=== PATIENT | female | born 1945 | race Caucasian/White ===

== ENCOUNTER 2021-06-07 16:38 | Inpatient (IN) | payer OTHER ==
[2021-06-07 18:53] LABS: HEMATOCRIT 24.4 % (32.4-45.2); HEMOGLOBIN 7.7 GM/dL (10.7-15.3); MCH 28.5 pg (25.7-33.7); MCHC 31.6 g/dl (32.0-36.0); MEAN PLT VOLUME 7.7 fl (7.5-11.1); PLATELET COUNT 250 10^3/uL (134-434); RBC 2.71 M/mm3 (3.60-5.2); RDW 21.1 % (11.6-15.6); RETICULOCYTES 3.32 % (0.5-1.5); WHITE BLOOD COUNT 9.9 K/mm3 (4.0-10.0)
[2021-06-07 18:57] LABS: CHLORIDE 107 mmol/L (98-107); SODIUM 138 mmol/L (136-145)
[2021-06-07 18:59] LABS: CALCIUM 8.7 mg/dL (8.5-10.1)
[2021-06-07 19:00] LABS: ANION GAP 10 MMOL/L (8-16); BLOOD UREA NITROGEN 26.8 mg/dL (7-18); CO2 21 mmol/L (21-32); GLUCOSE,RANDOM 114 mg/dL (74-106)
[2021-06-07 19:01] LABS: INR 0.97 (0.83-1.09)
[2021-06-07 19:02] LABS: MAGNESIUM 2.1 mg/dL (1.8-2.4)
[2021-06-07 19:04] LABS: ACTIVATED PTT 27.1 SECONDS (25.2-36.5); SGPT/ALT 14 U/L (13-61)
[2021-06-07 19:05] LABS: BILIRUBIN,TOTAL 0.3 mg/dL (0.2-1); CREATININE 1.6 mg/dL (0.55-1.3); IRON SERUM 52 ug/dL (50-175); SGOT/AST 13 U/L (15-37); TOT PROT 6.7 g/dl (6.4-8.2); TOTAL IRON BINDING CAPACITY 244 ug/dL (250-450)
[2021-06-07 19:06] LABS: ALK PHOS 100 U/L (45-117)
[2021-06-07 19:09] LABS: LDH 216 U/L (84-246)
[2021-06-07 20:01] LABS: ANISOCYTOSIS 3+; MACROCYTOSIS 0; OVALOCYTE 1+; PLATELET ESTIMATE NORMAL
[2021-06-08] MEDS ORDERED: POLYETHYLENE GLYCOL 3350 255 GM BTL PO PRN (04:22)
[2021-06-08] MEDS: LEVOTHYROXINE NA 100 MCG TABLET (FP) PO SCH (06:22)
[2021-06-08] MEDS ORDERED: lamoTRIgine 100 MG TABLET PO SCH (07:00)
[2021-06-08] MEDS ORDERED: PT OWN MED DRAWER 7, Y5N ONE (09:14)
[2021-06-08] MEDS: traMADol HCL 50 MG TABLET PO PRN (09:15)
[2021-06-08] MEDS: MIRTAZAPINE 15 MG TABLET (FP) PO SCH (09:16)
[2021-06-08] MEDS: CLOPIDOGREL BISULFATE 75 MG TABLET (FP) PO SCH (09:16)
[2021-06-08 09:27] LABS: HEMATOCRIT 25.3 % (32.4-45.2); HEMOGLOBIN 8.4 GM/dL (10.7-15.3); MCH 26.5 pg (25.7-33.7); MCHC 33.2 g/dl (32.0-36.0); MEAN CELL VOLUME 79.7 fl (80-96); MEAN PLT VOLUME 7.4 fl (7.5-11.1); PLATELET COUNT 221 10^3/uL (134-434); RBC 3.18 M/mm3 (3.60-5.2); RDW 28.2 % (11.6-15.6); WHITE BLOOD COUNT 7.5 K/mm3 (4.0-10.0)
[2021-06-08 09:52] LABS: CALCIUM 8.3 mg/dL (8.5-10.1)
[2021-06-08 09:53] LABS: BLOOD UREA NITROGEN 22.3 mg/dL (7-18)
[2021-06-08 09:55] LABS: CREATININE 1.4 mg/dL (0.55-1.3)
[2021-06-08] MEDS ORDERED: METOPROLOL TARTRATE 25 MG TABLET (FP) PO SCH (10:00)
[2021-06-08 10:17] LABS: ANISOCYTOSIS 2+; MACROCYTOSIS 2+; OVALOCYTE 1+; PLATELET ESTIMATE NORMAL
[2021-06-08] MEDS: PANTOPRAZOLE 40 MG TABLET PO SCH (10:33)
[2021-06-08 13:00] VITALS: BMI 31.0
[2021-06-08] MEDS: POLYETHYLENE GLYCOL (HEALTHYLAX) 3350 17 GM PACKET PO SCH ×3 (14:32→21:28)
[2021-06-08 14:51] LABS: EPI CELLS 22 /uL (0-25.1); HYALINE CASTS 2 /uL (0-3.1); URINE APPEARANCE CLEAR; URINE BACTERIA 4930 /uL (0-1359); URINE BILIRUBIN NEGATIVE (NEGATIVE); URINE COLOR YELLOW; URINE GLUCOSE (UA) NEGATIVE (NEGATIVE); URINE KETONE NEGATIVE (NEGATIVE); URINE LEUK ESTERASE 3+ (NEGATIVE); URINE NITRITE POSITIVE (NEGATIVE); URINE PROTEIN TRACE (NEGATIVE); URINE RBC 6 /uL (0-23.9); URINE UROBILINOGEN 0.2 mg/dL (0.2-1.0); URINE WBC 71 /uL (0-25.8)
[2021-06-08] MEDS: traZODone HCL 50 MG TABLET (FP) PO SCH (21:25)
[2021-06-08] MEDS: DOCUSATE SODIUM 100 MG CAPSULE (FP) PO SCH (21:25)
[2021-06-09] MEDS ORDERED: PT OWN MED DRAWER 7, Y5N ONE ×2 (06:15→09:28)
[2021-06-09] MEDS: LEVOTHYROXINE NA 100 MCG TABLET (FP) PO SCH (06:32)
[2021-06-09] MEDS: LAMOTRIGINE 100 MG, LAMOTRIGINE 50 MG PO SCH (06:32)
[2021-06-09] MEDS: POLYETHYLENE GLYCOL (HEALTHYLAX) 3350 17 GM PACKET PO SCH ×3 (06:33→21:09)
[2021-06-09] MEDS: MIRTAZAPINE 15 MG TABLET (FP) PO SCH (09:30)
[2021-06-09] MEDS: PANTOPRAZOLE 40 MG TABLET PO SCH (09:30)
[2021-06-09] MEDS: traMADol HCL 50 MG TABLET PO PRN (09:30)
[2021-06-09] MEDS: CLOPIDOGREL BISULFATE 75 MG TABLET (FP) PO SCH (09:30)
[2021-06-09 09:45] LABS: BASO % 0.6 % (0-2.0); HEMATOCRIT 27.1 % (32.4-45.2); HEMOGLOBIN 8.7 GM/dL (10.7-15.3); LYMPH % 44.8 % (8-40); MCHC 32.2 g/dl (32.0-36.0); MEAN CELL VOLUME 80.9 fl (80-96); MEAN PLT VOLUME 7.5 fl (7.5-11.1); MONO % 9.9 % (3.8-10.2); NEUT % 40.7 % (42.8-82.8); PLATELET COUNT 216 10^3/uL (134-434); RBC 3.35 M/mm3 (3.60-5.2); RDW 27.9 % (11.6-15.6); WHITE BLOOD COUNT 7.2 K/mm3 (4.0-10.0)
[2021-06-09 10:07] LABS: CALCIUM 8.4 mg/dL (8.5-10.1)
[2021-06-09 10:08] LABS: BLOOD UREA NITROGEN 18.2 mg/dL (7-18)
[2021-06-09 10:10] LABS: CREATININE 1.4 mg/dL (0.55-1.3)
[2021-06-09 17:11] LABS: EPI CELLS 14 /uL (0-25.1); HYALINE CASTS 4 /uL (0-3.1); URINE APPEARANCE TURBID; URINE BACTERIA 2367 /uL (0-1359); URINE BILIRUBIN NEGATIVE (NEGATIVE); URINE COLOR YELLOW; URINE GLUCOSE (UA) NEGATIVE (NEGATIVE); URINE KETONE NEGATIVE (NEGATIVE); URINE LEUK ESTERASE 3+ (NEGATIVE); URINE NITRITE POSITIVE (NEGATIVE); URINE PROTEIN 2+ (NEGATIVE); URINE UROBILINOGEN 0.2 mg/dL (0.2-1.0); URINE WBC 9075 /uL (0-25.8)
[2021-06-09 18:15] LABS: URINE RBC 139.4 /uL (0-23.9); YEAST NONE SEEN (NEGATIVE)
[2021-06-09] MEDS: DOCUSATE SODIUM 100 MG CAPSULE (FP) PO SCH (21:08)
[2021-06-09] MEDS: traZODone HCL 50 MG TABLET (FP) PO SCH (21:09)
[2021-06-10] MEDS ORDERED: PT OWN MED DRAWER 7, Y5N ONE (06:06)
[2021-06-10] MEDS: POLYETHYLENE GLYCOL (HEALTHYLAX) 3350 17 GM PACKET PO SCH ×3 (06:24→21:40)
[2021-06-10] MEDS: LEVOTHYROXINE NA 100 MCG TABLET (FP) PO SCH (06:24)
[2021-06-10] MEDS: LAMOTRIGINE 100 MG, LAMOTRIGINE 50 MG PO SCH (06:24)
[2021-06-10 08:54] LABS: BASO % 0.5 % (0-2.0); EOS % 2.6 % (0-4.5); HEMATOCRIT 26.7 % (32.4-45.2); HEMOGLOBIN 8.7 GM/dL (10.7-15.3); MCH 26.8 pg (25.7-33.7); MCHC 32.6 g/dl (32.0-36.0); MEAN PLT VOLUME 7.4 fl (7.5-11.1); MONO % 9.6 % (3.8-10.2); NEUT % 43.3 % (42.8-82.8); PLATELET COUNT 211 10^3/uL (134-434); RBC 3.25 M/mm3 (3.60-5.2); RDW 27.9 % (11.6-15.6); WHITE BLOOD COUNT 8.7 K/mm3 (4.0-10.0)
[2021-06-10 09:15] LABS: BLOOD UREA NITROGEN 20.4 mg/dL (7-18); CALCIUM 8.4 mg/dL (8.5-10.1)
[2021-06-10 09:18] LABS: CREATININE 1.5 mg/dL (0.55-1.3)
[2021-06-10] MEDS: MIRTAZAPINE 15 MG TABLET (FP) PO SCH (09:21)
[2021-06-10] MEDS: CLOPIDOGREL BISULFATE 75 MG TABLET (FP) PO SCH (09:21)
[2021-06-10] MEDS: PANTOPRAZOLE 40 MG TABLET PO SCH (09:21)
[2021-06-10] MEDS: traZODone HCL 50 MG TABLET (FP) PO SCH ×2 (21:39→21:40)
[2021-06-10] MEDS: DOCUSATE SODIUM 100 MG CAPSULE (FP) PO SCH (21:39)
[2021-06-11] MEDS ORDERED: PT OWN MED DRAWER 7, Y5N ONE ×3 (06:03→22:48)
[2021-06-11] MEDS: POLYETHYLENE GLYCOL (HEALTHYLAX) 3350 17 GM PACKET PO SCH ×4 (06:15→21:16)
[2021-06-11] MEDS: LEVOTHYROXINE NA 100 MCG TABLET (FP) PO SCH (06:15)
[2021-06-11] MEDS: LAMOTRIGINE 100 MG, LAMOTRIGINE 50 MG PO SCH (06:15)
[2021-06-11 10:17] LABS: HEMOGLOBIN 9.2 GM/dL (10.7-15.3); MCHC 31.8 g/dl (32.0-36.0); MEAN CELL VOLUME 81.7 fl (80-96); MEAN PLT VOLUME 7.6 fl (7.5-11.1); PLATELET COUNT 218 10^3/uL (134-434); RBC 3.55 M/mm3 (3.60-5.2); RDW 27.4 % (11.6-15.6); WHITE BLOOD COUNT 8.3 K/mm3 (4.0-10.0)
[2021-06-11] MEDS: PANTOPRAZOLE 40 MG TABLET PO SCH (10:34)
[2021-06-11] MEDS: CLOPIDOGREL BISULFATE 75 MG TABLET (FP) PO SCH (10:35)
[2021-06-11] MEDS: MIRTAZAPINE 15 MG TABLET (FP) PO SCH (10:35)
[2021-06-11 10:57] LABS: ALBUMIN 2.8 g/dl (3.4-5.0); BLOOD UREA NITROGEN 21.7 mg/dL (7-18); CALCIUM 8.8 mg/dL (8.5-10.1)
[2021-06-11 11:00] LABS: CREATININE 1.5 mg/dL (0.55-1.3)
[2021-06-11 11:02] LABS: BILIRUBIN,TOTAL 0.5 mg/dL (0.2-1); TOT PROT 6.2 g/dl (6.4-8.2)
[2021-06-11] MEDS: DOCUSATE SODIUM 100 MG CAPSULE (FP) PO SCH (21:13)
[2021-06-11] MEDS: traZODone HCL 50 MG TABLET (FP) PO SCH (21:13)
[2021-06-12] MEDS: POLYETHYLENE GLYCOL (HEALTHYLAX) 3350 17 GM PACKET PO SCH (05:53)
[2021-06-12] MEDS ORDERED: PT OWN MED DRAWER 7, Y5N ONE ×2 (05:56→10:45)
[2021-06-12] MEDS: LAMOTRIGINE 100 MG, LAMOTRIGINE 50 MG PO SCH (06:00)
[2021-06-12] MEDS: LEVOTHYROXINE NA 100 MCG TABLET (FP) PO SCH (06:00)
[2021-06-12] MEDS: MIRTAZAPINE 15 MG TABLET (FP) PO SCH (10:46)
[2021-06-12] MEDS: CLOPIDOGREL BISULFATE 75 MG TABLET (FP) PO SCH (10:46)
[2021-06-12] MEDS: PANTOPRAZOLE 40 MG TABLET PO SCH (10:46)
[2021-06-12 11:58] VITALS: BP 125/66; PULSE 79; TEMP 97.8
== END 2021-06-12 13:00 | DRG 812 ==
LOC: JER 16:38 → JERBED 20:02 → J6S 23:52
PROVIDERS: ADMIT Internal Medicine; ATTEND Family Medicine
PROC: 30233N1 Transfusion of Nonautologous Red Blood Cells into Peripheral Vein, Percutaneous Approach (ICD-10-PCS; principal; 2021-06-08)
DX: D50.9 Iron deficiency anemia, unspecified (principal); N17.9 Acute kidney failure, unspecified; C85.90 Non-Hodgkin lymphoma, unspecified, unspecified site; C16.9 Malignant neoplasm of stomach, unspecified; I10 Essential (primary) hypertension; K21.9 Gastro-esophageal reflux disease without esophagitis; I25.10 Atherosclerotic heart disease of native coronary artery without angina pectoris; Z85.028 Personal history of other malignant neoplasm of stomach; Z85.048 Personal history of other malignant neoplasm of rectum, rectosigmoid junction, and anus; M48.00 Spinal stenosis, site unspecified; E78.5 Hyperlipidemia, unspecified; E03.9 Hypothyroidism, unspecified
CPT/HCPCS: 36415; 36430; 71045-TC-FY; 71250-TC; 74176-TC; 76775-TC; 80048; 80053; 81003; 82272; 82550; 82570; 82607; 82728; 82746; 83010; 83540; 83550; 83615; 83735; 84100; 84156; 84300; 84466; 84484; 84540; 85025; 85027; 85045; 85610; 85730; 86850; 86900; 86901; 86922; 93005; 93010; 99285-25; C9803; P9058; U0003; U0005

== ENCOUNTER 2021-07-05 14:22 | Inpatient (IN) | payer OTHER ==
[2021-07-05 15:56] LABS: BASO % 0.4 % (0-2.0); EOS % 2.8 % (0-4.5); HEMATOCRIT 25.5 % (32.4-45.2); HEMOGLOBIN 8.3 GM/dL (10.7-15.3); LYMPH % 39.8 % (8-40); MCH 28.6 pg (25.7-33.7); MCHC 32.5 g/dl (32.0-36.0); MEAN CELL VOLUME 88.1 fl (80-96); MEAN PLT VOLUME 7.6 fl (7.5-11.1); MONO % 6.6 % (3.8-10.2); NEUT % 50.4 % (42.8-82.8); PLATELET COUNT 241 10^3/uL (134-434); RBC 2.89 M/mm3 (3.60-5.2); RDW 26.7 % (11.6-15.6); WHITE BLOOD COUNT 13.3 K/mm3 (4.0-10.0)
[2021-07-05 16:15] LABS: CHLORIDE 115 mmol/L (98-107); SODIUM 141 mmol/L (136-145)
[2021-07-05 16:17] LABS: ALBUMIN 2.6 g/dl (3.4-5.0); ANION GAP 8 MMOL/L (8-16); BLOOD UREA NITROGEN 48.2 mg/dL (7-18); CALCIUM 7.9 mg/dL (8.5-10.1); CO2 18 mmol/L (21-32); GLUCOSE,RANDOM 105 mg/dL (74-106); MAGNESIUM 2.5 mg/dL (1.8-2.4)
[2021-07-05 16:19] LABS: CREATININE 2.2 mg/dL (0.55-1.3); SGOT/AST 9 U/L (15-37); SGPT/ALT 13 U/L (13-61)
[2021-07-05 16:21] LABS: BILIRUBIN,TOTAL 0.3 mg/dL (0.2-1); TOT PROT 6.3 g/dl (6.4-8.2)
[2021-07-05 16:23] LABS: ALK PHOS 80 U/L (45-117)
[2021-07-05] MEDS ORDERED: INSULIN REGULAR HUMAN 100 UNITS/ML *VIAL IVPUSH ONE (16:24)
[2021-07-05] MEDS ORDERED: CALCIUM GLUCONATE 10% - 1,000 MG/10 ML VIAL IVPUSH ONE ×2 (16:24→19:08)
[2021-07-05] MEDS ORDERED: DEXTROSE 50%-WATER - 25 GM/50 ML VIAL IVPUSH ONE (16:25)
[2021-07-05] MEDS ORDERED: ALBUTEROL SO4 0.083% IH SOL 2.5 MG/3 ML VIAL.NEB. NEB ONE ×2 (16:30→17:05)
[2021-07-05] MEDS ORDERED: SODIUM CHLORIDE 0.9% 500 ML INFUS.BAG IV ONE (16:32)
[2021-07-05] MEDS ORDERED: SODIUM CHLORIDE 500 ML IV STA (16:50)
[2021-07-05] MEDS ORDERED: DEXTROSE 50%-WATER 25 GM/50 ML DISP.SYRIN ONE (17:05)
[2021-07-05] MEDS ORDERED: ATROPINE SULFATE 1 MG/10 ML DISP.SYRIN ONE (17:05)
[2021-07-05] MEDS ORDERED: ATROPINE SO4 0.4 MG/1 ML VIAL IVPUSH ONE (17:05)
[2021-07-05] MEDS ORDERED: CALCIUM GLUCONATE 10% - 1,000 MG/10 ML VIAL ONE ×2 (17:05→19:33)
[2021-07-05 18:38] LABS: PHOSPHOROUS 4.4 mg/dL (2.5-4.9); URIC ACID 5.3 mg/dL (2.6-7.2)
[2021-07-05 18:41] LABS: CALCIUM 8.3 mg/dL (8.5-10.1)
[2021-07-05 18:42] LABS: BLOOD UREA NITROGEN 46.2 mg/dL (7-18)
[2021-07-05 18:43] LABS: LDH 215 U/L (84-246)
[2021-07-05 18:44] LABS: CREATININE 2.1 mg/dL (0.55-1.3)
[2021-07-05] MEDS ORDERED: SODIUM ZIRCONIUM CYCLOSILICATE (LOKELMA) 5 GM PACKET ONE (18:45)
[2021-07-05] MEDS: SODIUM ZIRCONIUM CYCLOSILICATE (LOKELMA) 5 GM PACKET PO SCH (18:48)
[2021-07-06] MEDS ORDERED: CALCIUM GLUCONATE 10% - 1,000 MG/10 ML VIAL IVPUSH ONE (00:22)
[2021-07-06] MEDS ORDERED: CALCIUM GLUCONATE 10% - 1,000 MG/10 ML VIAL ONE (00:23)
[2021-07-06 03:10] LABS: ALBUMIN 2.3 g/dl (3.4-5.0); BLOOD UREA NITROGEN 41.4 mg/dL (7-18); CALCIUM 8.2 mg/dL (8.5-10.1); MAGNESIUM 2.2 mg/dL (1.8-2.4)
[2021-07-06 03:14] LABS: CREATININE 1.9 mg/dL (0.55-1.3)
[2021-07-06 03:15] LABS: BILIRUBIN,TOTAL 0.2 mg/dL (0.2-1); TOT PROT 5.6 g/dl (6.4-8.2)
[2021-07-06] MEDS ORDERED: LEVOTHYROXINE NA 100 MCG TABLET (FP) PO SCH (07:00)
[2021-07-06] MEDS: CLOPIDOGREL BISULFATE 75 MG TABLET (FP) PO SCH (09:28)
[2021-07-06] MEDS: PANTOPRAZOLE 40 MG TABLET PO SCH (09:28)
[2021-07-06] MEDS: SODIUM ZIRCONIUM CYCLOSILICATE (LOKELMA) 5 GM PACKET PO SCH (09:28)
[2021-07-06] MEDS ORDERED: SODIUM CHLORIDE 1,000 ML IV SCH (12:45)
[2021-07-06 13:47] VITALS: BMI 33.0
[2021-07-06] MEDS: SODIUM BICARBONATE 650 MG TABLET PO SCH (15:32)
[2021-07-06] MEDS ORDERED: LIDOCAINE HCL 2% JELLY (5 ML/TUBE) TP PRN (20:57)
[2021-07-06] MEDS: DOCUSATE SODIUM 100 MG CAPSULE (FP) PO SCH (22:36)
[2021-07-06] MEDS: MIRTAZAPINE 15 MG TABLET (FP) PO SCH (22:36)
[2021-07-07] MEDS: LEVOTHYROXINE NA 125 MCG TABLET (FP) PO SCH (06:29)
[2021-07-07 07:57] LABS: HEMATOCRIT 22.6 % (32.4-45.2); HEMOGLOBIN 7.3 GM/dL (10.7-15.3); MCH 28.7 pg (25.7-33.7); MCHC 32.6 g/dl (32.0-36.0); MEAN CELL VOLUME 88.1 fl (80-96); MEAN PLT VOLUME 7.2 fl (7.5-11.1); PLATELET COUNT 204 10^3/uL (134-434); RBC 2.56 M/mm3 (3.60-5.2); RDW 26.1 % (11.6-15.6); WHITE BLOOD COUNT 7.3 K/mm3 (4.0-10.0)
[2021-07-07 08:15] LABS: BLOOD UREA NITROGEN 35.7 mg/dL (7-18); CALCIUM 8.2 mg/dL (8.5-10.1)
[2021-07-07 09:14] LABS: ANISOCYTOSIS 3+; MACROCYTOSIS 1+; PLATELET ESTIMATE NORMAL; ROULEAU 1+
[2021-07-07 09:15] LABS: ALBUMIN 2.6 g/dl (3.4-5.0); BILIRUBIN,TOTAL 0.3 mg/dL (0.2-1); BLOOD UREA NITROGEN 38.1 mg/dL (7-18); CALCIUM 8.3 mg/dL (8.5-10.1); CREATININE 2.2 mg/dL (0.55-1.3); TOT PROT 6.2 g/dl (6.4-8.2)
[2021-07-07] MEDS: SODIUM BICARBONATE 650 MG TABLET PO SCH (09:40)
[2021-07-07] MEDS: SODIUM ZIRCONIUM CYCLOSILICATE (LOKELMA) 5 GM PACKET PO SCH (09:41)
[2021-07-07] MEDS: PANTOPRAZOLE 40 MG TABLET PO SCH (09:41)
[2021-07-07] MEDS: CLOPIDOGREL BISULFATE 75 MG TABLET (FP) PO SCH (09:41)
[2021-07-07 10:10] LABS: EPI CELLS 7 /uL (0-25.1); HYALINE CASTS 1 /uL (0-3.1); PH,URINE 5.5 (5.0-8.0); URINE APPEARANCE CLOUDY; URINE BACTERIA 1385 /uL (0-1359); URINE BILIRUBIN NEGATIVE (NEGATIVE); URINE COLOR YELLOW; URINE GLUCOSE (UA) NEGATIVE (NEGATIVE); URINE KETONE NEGATIVE (NEGATIVE); URINE LEUK ESTERASE 3+ (NEGATIVE); URINE NITRITE NEGATIVE (NEGATIVE); URINE PROTEIN TRACE (NEGATIVE); URINE RBC 17 /uL (0-23.9); URINE WBC 1018 /uL (0-25.8)
[2021-07-07 11:26] LABS: MAGNESIUM 2.3 mg/dL (1.8-2.4); PHOSPHOROUS 3.4 mg/dL (2.5-4.9)
[2021-07-07] MEDS ORDERED: SODIUM CHLORIDE 0.45% 1,000 ML IV SCH (12:45)
[2021-07-07] MEDS: MIRTAZAPINE 15 MG TABLET (FP) PO SCH (21:39)
[2021-07-07] MEDS: DOCUSATE SODIUM 100 MG CAPSULE (FP) PO SCH (21:40)
[2021-07-08] MEDS: LEVOTHYROXINE NA 125 MCG TABLET (FP) PO SCH (06:06)
[2021-07-08 08:27] LABS: HEMATOCRIT 24.8 % (32.4-45.2); HEMOGLOBIN 8.3 GM/dL (10.7-15.3); MCH 29.6 pg (25.7-33.7); MCHC 33.5 g/dl (32.0-36.0); MEAN CELL VOLUME 88.4 fl (80-96); MEAN PLT VOLUME 6.7 fl (7.5-11.1); PLATELET COUNT 230 10^3/uL (134-434); WHITE BLOOD COUNT 7.7 K/mm3 (4.0-10.0)
[2021-07-08] MEDS: SODIUM BICARBONATE 650 MG TABLET PO SCH ×2 (08:45→09:17)
[2021-07-08] MEDS: PANTOPRAZOLE 40 MG TABLET PO SCH ×2 (08:45→09:17)
[2021-07-08] MEDS: CLOPIDOGREL BISULFATE 75 MG TABLET (FP) PO SCH ×2 (08:45→09:16)
[2021-07-08] MEDS: SODIUM ZIRCONIUM CYCLOSILICATE (LOKELMA) 5 GM PACKET PO SCH ×2 (08:46→09:16)
[2021-07-08 08:53] LABS: CREATININE 1.7 mg/dL (0.55-1.3)
[2021-07-08 08:54] LABS: ALBUMIN 2.4 g/dl (3.4-5.0); BLOOD UREA NITROGEN 26.2 mg/dL (7-18)
[2021-07-08 08:55] LABS: BILIRUBIN,TOTAL 0.3 mg/dL (0.2-1)
[2021-07-08 08:56] LABS: CALCIUM 8.3 mg/dL (8.5-10.1)
[2021-07-08 10:54] LABS: ANISOCYTOSIS 0; MACROCYTOSIS 0; OVALOCYTE 1+; PLATELET ESTIMATE NORMAL
[2021-07-08] MEDS ORDERED: amLODIPine BESYLATE 5 MG TABLET (FP) PO ONE (18:10)
[2021-07-08] MEDS: MIRTAZAPINE 15 MG TABLET (FP) PO SCH (21:17)
[2021-07-08] MEDS: DOCUSATE SODIUM 100 MG CAPSULE (FP) PO SCH (21:18)
[2021-07-09] MEDS: LEVOTHYROXINE NA 125 MCG TABLET (FP) PO SCH (06:37)
[2021-07-09] MEDS ORDERED: amLODIPine BESYLATE 5 MG TABLET (FP) PO SCH (10:00)
[2021-07-09] MEDS ORDERED: amLODIPine BESYLATE 10 MG TABLET (FP) PO SCH (10:45)
[2021-07-09] MEDS: SODIUM BICARBONATE 650 MG TABLET PO SCH (10:56)
[2021-07-09] MEDS: PANTOPRAZOLE 40 MG TABLET PO SCH (10:56)
[2021-07-09] MEDS: CLOPIDOGREL BISULFATE 75 MG TABLET (FP) PO SCH (10:56)
[2021-07-09] MEDS: SODIUM ZIRCONIUM CYCLOSILICATE (LOKELMA) 5 GM PACKET PO SCH (10:57)
[2021-07-09 11:06] LABS: BASO % 0.5 % (0-2.0); EOS % 2.6 % (0-4.5); HEMATOCRIT 26.4 % (32.4-45.2); HEMOGLOBIN 8.7 GM/dL (10.7-15.3); LYMPH % 34.5 % (8-40); MCH 29.4 pg (25.7-33.7); MCHC 32.9 g/dl (32.0-36.0); MEAN CELL VOLUME 89.1 fl (80-96); MONO % 7.6 % (3.8-10.2); NEUT % 54.8 % (42.8-82.8); PLATELET COUNT 239 10^3/uL (134-434); RBC 2.97 M/mm3 (3.60-5.2); WHITE BLOOD COUNT 9.6 K/mm3 (4.0-10.0)
[2021-07-09 11:20] LABS: CALCIUM 8.8 mg/dL (8.5-10.1)
[2021-07-09 11:21] LABS: BLOOD UREA NITROGEN 30.2 mg/dL (7-18)
[2021-07-09 11:24] LABS: CREATININE 1.7 mg/dL (0.55-1.3)
[2021-07-09 13:14] VITALS: BP 154/90; PULSE 95; TEMP 98.1
[2021-07-09 13:34] LABS: ANISOCYTOSIS 2+; MACROCYTOSIS 0; OVALOCYTE 1+; PLATELET ESTIMATE NORMAL
== END 2021-07-09 15:47 | DRG 683 ==
LOC: JER 14:22 → JERBED 16:34 → J4W 07-06 04:38
PROVIDERS: ADMIT Internal Medicine; ATTEND Family Medicine
DX: N17.9 Acute kidney failure, unspecified (principal); C85.90 Non-Hodgkin lymphoma, unspecified, unspecified site; E87.2 Acidosis; I25.10 Atherosclerotic heart disease of native coronary artery without angina pectoris; D64.9 Anemia, unspecified; E87.5 Hyperkalemia; R00.1 Bradycardia, unspecified; I11.0 Hypertensive heart disease with heart failure; I50.9 Heart failure, unspecified; E03.9 Hypothyroidism, unspecified; F25.9 Schizoaffective disorder, unspecified; E66.9 Obesity, unspecified; Z68.33 Body mass index [BMI] 33.0-33.9, adult; E86.0 Dehydration; K21.9 Gastro-esophageal reflux disease without esophagitis; Z85.048 Personal history of other malignant neoplasm of rectum, rectosigmoid junction, and anus; Z85.028 Personal history of other malignant neoplasm of stomach; Z85.038 Personal history of other malignant neoplasm of large intestine; Z95.5 Presence of coronary angioplasty implant and graft
CPT/HCPCS: 36415; 71045-TC-FY; 80048; 80053; 80175; 81003; 82550; 82728; 82962; 83540; 83550; 83615; 83735; 84100; 84439; 84443; 84484; 84550; 85025; 93005; 93010; 99285-25; C9803; U0003; U0005